=== PATIENT | male | born 1980 | race Caucasian/White ===

== ENCOUNTER 2021-07-10 23:34 | Emergency (ER) | payer OTHER, BC ==
[2021-07-10 23:47] VITALS: BP 119/79; PULSE 67; TEMP 97.3; BMI 31.5
[2021-07-11] MEDS ORDERED: KETOROLAC TROMETHAMINE 30 MG/1 ML VIAL IM ONE (00:27)
[2021-07-11] MEDS ORDERED: KETOROLAC TROMETHAMINE 30 MG/1 ML VIAL ONE (00:32)
== END 2021-07-11 00:43 | disposition home or self-care (01) ==
LOC: JER 23:34
PROC: 3E0233Z Introduction of Anti-inflammatory into Muscle, Percutaneous Approach (ICD-10-PCS; principal; 2021-07-11)
DX: M54.2 Cervicalgia (principal); M54.9 Dorsalgia, unspecified; V89.9XXA Person injured in unspecified vehicle accident, initial encounter; Y92.9 Unspecified place or not applicable
CPT/HCPCS: 99283-25